=== PATIENT | male | born 1960 | race Caucasian/White ===

== ENCOUNTER 2020-05-18 07:42 | Outpatient (CLI) | payer MEDICAID ==
[~2020-05-18] VITALS: Ht 165.1 cm; Wt 68.0 kg
[2020-05-18] VITALS (7 sets, daily range): BP systolic 103–133; BP diastolic 67–79
[2020-05-18] MEDS ORDERED: aminophylline 250mg/10ml inj. IV ONE (10:30)
[2020-05-18] MEDS ORDERED: regadenoson 0.4mg/5ml syringe IV PRN (10:30)
[2020-05-18] MEDS ORDERED: normal saline 1000ml 1,000 ML IV SCH (10:35)
[2020-05-18] MEDS ORDERED: nitroGLYCERIN 0.4mg SUBLingual tab SL PRN (10:35)
== END 2020-05-18 23:59 | disposition home or self-care (01) ==
LOC: RAD 07:42
PROVIDERS: ATTEND Internal Medicine Cardiovascular Disease
DX: Z01.810 Encounter for preprocedural cardiovascular examination (principal); I42.9 Cardiomyopathy, unspecified
CPT/HCPCS: 78452; 93017; A9500; J0280; J2785; J7030

== ENCOUNTER 2020-09-22 09:50 | Inpatient (IN) | payer MEDICAID ==
[2020-08-24 11:50] LABS: BASOPHILS # (AUTO) 0.1 X10'3 (0-0.2); EOSINOPHILS # (AUTO) 0.3 X10'3 (0-0.9); EOSINOPHILS % (AUTO) 3.5 % (0-6); MEAN CORPUSCULAR HEMOGLOBIN 27.6 PG (27.0-31.0); MEAN CORPUSCULAR HGB CONC 33.4 g/dL (33.0-36.5); MEAN CORPUSCULAR VOLUME 82.6 FL (78-98); MEAN PLATELET VOLUME 7.1 FL (7.4-10.4); MONOCYTES # (AUTO) 0.8 X10'3 (0-0.9); MONOCYTES % (AUTO) 8.4 % (2-12); NEUTROPHILS % (AUTO) 65.1 % (42-75); PRE OP HEMATOCRIT 41.6 % (42.0-52.0); PRE OP HEMOGLOBIN 13.9 g/dL (14.0-17.9); PRE OP PLATELET COUNT 330 X10'3 (140-440); RED BLOOD COUNT 5.04 X10'6 (4.70-6.10); RED CELL DISTRIBUTION WIDTH 16.7 % (11.5-14.5)
[2020-08-24 11:58] LABS: ALBUMIN 3.3 G/DL (3.4-5.0); ALBUMIN/GLOBULIN RATIO 0.7 (1.1-1.5); ALKALINE PHOSPHATASE 127 IU/L (46-116); BLOOD UREA NITROGEN 13 MG/DL (7-18); BUN/CREATININE RATIO 14.9 (5.4-32.0); CHLORIDE 104 MMOL/L (99-107); CREATININE 0.87 MG/DL (0.60-1.10); PRE OP ALT 27 U/L (30-65); PRE OP ANION GAP 8 (8-16); PRE OP AST 17 U/L (10-37); PRE OP BILIRUB, TOTAL 0.3 MG/DL (0.0-1.0); PRE OP GLUCOSE 73 MG/DL (70-104); PRE OP SODIUM 140 MMOL/L (135-145); TOTAL CARBON DIOXIDE 28.4 MMOL/L (24-32); eGFR 89 ML/MIN
[2020-09-16 11:17] LABS: BASOPHILS # (AUTO) 0.1 X10'3 (0-0.2); EOSINOPHILS # (AUTO) 0.2 X10'3 (0-0.9); EOSINOPHILS % (AUTO) 2.1 % (0-6); LYMPHOCYTES # (AUTO) 1.6 X10'3 (1.1-4.8); LYMPHOCYTES % (AUTO) 18.5 % (21-51); MEAN CORPUSCULAR HEMOGLOBIN 27.1 PG (27.0-31.0); MEAN PLATELET VOLUME 6.5 FL (7.4-10.4); MONOCYTES # (AUTO) 0.8 X10'3 (0-0.9); MONOCYTES % (AUTO) 8.9 % (2-12); NEUTROPHILS # (AUTO) 6.2 X10'3 (1.8-7.7); NEUTROPHILS % (AUTO) 69.5 % (42-75); PRE OP HEMATOCRIT 39.9 % (42.0-52.0); PRE OP HEMOGLOBIN 13.2 g/dL (14.0-17.9); PRE OP PLATELET COUNT 353 X10'3 (140-440); RED BLOOD COUNT 4.87 X10'6 (4.70-6.10); RED CELL DISTRIBUTION WIDTH 15.6 % (11.5-14.5)
[2020-09-16 11:31] LABS: PRE OP PROTIME 10.5 SECONDS (9.0-12.0)
[2020-09-16 11:32] LABS: ALBUMIN 3.4 G/DL (3.4-5.0); ALBUMIN/GLOBULIN RATIO 0.7 (1.1-1.5); ALKALINE PHOSPHATASE 160 IU/L (46-116); BLOOD UREA NITROGEN 16 MG/DL (7-18); BUN/CREATININE RATIO 18.4 (5.4-32.0); CALCIUM 9.3 MG/DL (8.5-10.1); CHLORIDE 104 MMOL/L (99-107); CREATININE 0.87 MG/DL (0.60-1.10); PRE OP ANION GAP 7 (8-16); PRE OP AST 50 U/L (10-37); PRE OP BILIRUB, TOTAL 0.3 MG/DL (0.0-1.0); PRE OP GLUCOSE 85 MG/DL (70-104); PRE OP SODIUM 141 MMOL/L (135-145); TOTAL CARBON DIOXIDE 30.5 MMOL/L (24-32); TOTAL PROTEIN 8.1 G/DL (6.4-8.2); eGFR 89 ML/MIN
[2020-09-16 11:36] LABS: PRE OP ALT 126 U/L (30-65)
[~2020-09-22] VITALS: Ht 167.6 cm; Wt 68.0 kg
[2020-09-22] VITALS (15 sets, daily range): BP systolic 92–134; BP diastolic 50–86
[~2020-09-22 09:50] MED LIST: BUPR2TAB11 SL; VANCOMYCIN INJ 1000 MG in NORMAL SALINE 250ml IV.SOLN IV ONE; ceFAZolin 2gm in dextrose, iso 50 ML IV ONE; famotidine 20mg tablet PO ONE; tranexamic acid inj. 680 MG in normal saline 100ml IV soln 100 ML IV ONE
[2020-09-22] MEDS ORDERED: LIDOcaine 1% (10mg/ml) 2ml vial ONE (10:48)
[2020-09-22] MEDS: ringers solution, lacted 1,000 ML IV SCH ×2 (10:56→17:08)
[2020-09-22] MEDS ORDERED: tetracaine 1% (10mg/ml) pres. free inj. ONE (12:26)
[2020-09-22] MEDS ORDERED: ROPIVAcaine 0.5% (5mg/ml) 30ml vial ONE ×2 (12:39→15:27)
[2020-09-22] MEDS ORDERED: morphine /PF 1mg/ml 10ml inj. ONE (13:35)
[2020-09-22] MEDS ORDERED: MIDAZolam 1mg/ml 10ml vial ONE (13:35)
[2020-09-22] MEDS ORDERED: diphenhydrAMINE 50 mg/ml inj ONE (14:06)
[2020-09-22] MEDS ORDERED: propofol inj 20 ML IV ONE ×2 (14:13→14:14)
[2020-09-22] MEDS ORDERED: LIDOcaine 2% (20mg/ml) 5ml vial ONE (14:13)
[2020-09-22] MEDS ORDERED: ondansetron/PF 4mg/2ml inj IV PRN ×3 (14:20→16:05)
[2020-09-22] MEDS ORDERED: diphenhydrAMINE 50 mg/ml inj IV PRN (14:20)
[2020-09-22] MEDS ORDERED: ringers solution, lacted 1,000 ML IV SCH (14:25)
[2020-09-22] MEDS ORDERED: hydrALAZINE 20mg/ml inj. IV PRN (14:25)
[2020-09-22] MEDS ORDERED: morphine 4 MG/ML inj SYRINge IV PRN (14:25)
[2020-09-22] MEDS ORDERED: fentaNYL/PF 50MCG/1 ML 2ML syringe IV PRN ×2 (14:25)
[2020-09-22] MEDS ORDERED: morphine 2 MG/ML inj. syringe IV PRN (14:25)
[2020-09-22] MEDS ORDERED: labetalol 20mg/4ml (5mg/ml) syringe IV PRN (14:25)
[2020-09-22] MEDS ORDERED: ROPIVAcaine 0.2% (10 MG/5 ML) BOLUS INJECTION ADDCANAL PRN (14:30)
[2020-09-22] MEDS ORDERED: ketorolac trometh. 30mg/ml inj. ONE (14:45)
[2020-09-22] MEDS ORDERED: ROPIVAcaine 0.2%/PF PUMP/bolus 550 ML ADDCANAL SCH (15:00)
[2020-09-22] MEDS ORDERED: HYDROmorphone 1 mg/ml syringe IV PRN (16:05)
[2020-09-22] MEDS ORDERED: HYDROmorphone inj. 0.5 MG/0.5 ML DISP.SYRIN IV PRN (16:05)
[2020-09-22] MEDS ORDERED: oxyCODONE IR 5mg (immed. release) tablet PO PRN (16:05)
[2020-09-22] MEDS ORDERED: diphenhydrAMINE 25mg capsule PO PRN ×2 (16:05)
[2020-09-22] MEDS ORDERED: acetaminophen 325mg tablet PO PRN (16:05)
[2020-09-22] MEDS ORDERED: bisacodyl 10mg suppository rectal RC PRN (16:05)
[2020-09-22] MEDS ORDERED: magnesium hydroxide 30ml (MOM) UD suspension PO PRN (16:05)
--- NOTE | 2020-09-22 16:25 | NUR ---
Received from OR via SURGICAL BED , accompanied by Anesthesiologist DAVID and report given by Anesthesiolgist. PATIENT WITH 20G PIV IN RIGHT UE RUNNING LR AT 100. ONQ NERVE BLOCK SITE PRESENT TO RIGHT LE. + DP PRESENT. 10L MASK ON WITH 99% SATURATIONS. SCDS DONNED. Addendum: 09/22/20 at 1640 by Armando Duque RN, RN Amended: Links added.
--- NOTE | 2020-09-22 17:25 | NUR ---
ALL CRITERIA FOR TRANSFER TO THE FLOOR HAS BEEN ACHIEVED. REPORT GIVEN AND ALL QUESTIONS ANSWERED, VSS. BED LOW 2 RAILS UP, CALL LIGHT PRESENT AND PATIENT HOOKED UP TO ALL LINES AND VSS. PATIENTS RN PRESENT TO ACCEPT CARE. SENAIT ROSS ASSUMING CARE OF PATIENT. Addendum: 09/22/20 at 1733 by Armando Salazar - SENAIT SAPP Amended: Links added.
[2020-09-22] MEDS: potassium cl 20mEq in 1/2 NS 1,000 ML IV SCH (18:28)
--- NOTE | 2020-09-22 18:33 | NUR ---
Problems reprioritized. Patient report given, questions answered & plan of care reviewed with DaliaRN.
[2020-09-22] MEDS: acetaminophen 325mg tablet PO SCH (19:48)
[2020-09-22] MEDS ORDERED: vancomycin/NS 1 GM ADD-VANTAGE 250 ML IV SCH (20:00)
[2020-09-22] MEDS ORDERED: tranexamic acid inj. 700 MG in normal saline 100ml IV soln 100 ML IV ONE (20:00)
[2020-09-22] MEDS ORDERED: sennosides 8.6mg tablet PO SCH (21:00)
[2020-09-22] MEDS: ceFAZolin/D5W- 1GM premix 50 ML IV SCH (23:54)
[2020-09-23] VITALS: BP 107/63
[2020-09-23] MEDS: potassium cl 20mEq in 1/2 NS 1,000 ML IV SCH ×2 (00:05→08:43)
[2020-09-23] MEDS: acetaminophen 325mg tablet PO SCH ×3 (02:06→14:41)
[2020-09-23] MEDS: oxyCODONE IR 5mg (immed. release) tablet PO PRN ×3 (02:59→12:43)
[2020-09-23 04:30] VITALS: BP 99/50
[2020-09-23 07:15] LABS: BASOPHILS # (AUTO) 0.1 X10'3 (0-0.2); BASOPHILS % (AUTO) 0.7 % (0-1); EOSINOPHILS # (AUTO) 0.2 X10'3 (0-0.9); EOSINOPHILS % (AUTO) 2.8 % (0-6); HEMATOCRIT 27.4 % (42.0-52.0); HEMOGLOBIN 9.1 g/dl (14.0-17.9); LYMPHOCYTES # (AUTO) 1.9 X10'3 (1.1-4.8); LYMPHOCYTES % (AUTO) 23.3 % (21-51); MEAN CORPUSCULAR HEMOGLOBIN 27.7 PG (27.0-31.0); MEAN CORPUSCULAR HGB CONC 33.1 g/dL (33.0-36.5); MEAN CORPUSCULAR VOLUME 83.5 FL (78-98); MEAN PLATELET VOLUME 6.9 FL (7.4-10.4); MONOCYTES # (AUTO) 0.8 X10'3 (0-0.9); MONOCYTES % (AUTO) 9.8 % (2-12); NEUTROPHILS % (AUTO) 63.4 % (42-75); PLATELET COUNT 239 X10'3 (140-440); RED BLOOD COUNT 3.28 X10'6 (4.70-6.10); RED CELL DISTRIBUTION WIDTH 15.3 % (11.5-14.5)
[2020-09-23 08:00] VITALS: BP 95/59
[2020-09-23] MEDS ORDERED: buprenorphine/naloxone 2-0.5mg sublingual tablet SL SCH (08:00)
[2020-09-23 08:04] LABS: ANION GAP 7 (8-16); CHLORIDE 106 MMOL/L (99-107); POTASSIUM 4.2 MMOL/L (3.5-5.1); SODIUM 140 MMOL/L (135-145); TOTAL CARBON DIOXIDE 26.9 MMOL/L (24-32)
[2020-09-23] MEDS ORDERED: ASPI-1 PO (08:29)
[2020-09-23] MEDS ORDERED: aspirin 325mg tablet PO SCH (08:30)
[2020-09-23] MEDS: ceFAZolin/D5W- 1GM premix 50 ML IV SCH (08:35)
[2020-09-23 11:58] VITALS: BP 104/65
--- NOTE | 2020-09-23 16:45 | NUR ---
Patient discharged at this time, patient educated on medications and on q ball. Patient left with all belongings at the discharge. Patient left with two polar packs and education on rehab exercises from PT. Patient directions and follow up gone over and highlighted during discharge patient showed verbal understanding of discharge teaching. Patient left in wheel chair home transported by private vehicle.
[2020-09-24] MEDS ORDERED: acetaminophen 325mg tablet PO PRN (16:05)
== END 2020-09-23 16:55 | disposition home or self-care (01) | DRG 302 ==
LOC: PAS 09:50 → SUR 3N 16:03
PROVIDERS: ADMIT Orthopaedic Surgery; ATTEND Orthopaedic Surgery
PROC: 3E0T3BZ Introduction of Anesthetic Agent into Peripheral Nerves and Plexi, Percutaneous Approach (ICD-10-PCS; 2020-09-22)
PROC: 8E0YXBZ Computer Assisted Procedure of Lower Extremity (ICD-10-PCS; 2020-09-22)
PROC: 8E0Y0CZ Robotic Assisted Procedure of Lower Extremity, Open Approach (ICD-10-PCS; 2020-09-22)
PROC: 0SRC0J9 Replacement of Right Knee Joint with Synthetic Substitute, Cemented, Open Approach (ICD-10-PCS; principal; 2020-09-22 13:35)
DX: M17.31 Unilateral post-traumatic osteoarthritis, right knee (principal); M21.061 Valgus deformity, not elsewhere classified, right knee; D62 Acute posthemorrhagic anemia; Z72.0 Tobacco use; Z79.82 Long term (current) use of aspirin
CPT/HCPCS: 36415; 71046; 80051; 80053; 82948; 85025; 85610; 85730; 87081; 87635; 97110; 97116; 97161; 97530; G0378; J0690; J1200; J1885; J2001; J2250; J2270; J2704; J2795; J3370; J3480; J7120; Q0163